=== PATIENT | male | born 1975 | race Two or more races ===

== ENCOUNTER 2023-01-29 17:34 | Emergency (ER) | payer MEDICAID ==
[~2023-01-29] VITALS: Ht 175.3 cm; Wt 82.8 kg
[2023-01-29 18:52] VITALS: BP 138/82
[2023-01-29] MEDS ORDERED: cefTRIAXone 1GM/50ML D5W 50 ML IV ONE (19:30)
[2023-01-29] MEDS ORDERED: SODIUM CHLORIDE 0.9% 1,000 ML IV ONE (19:30)
[2023-01-29] MEDS ORDERED: methylPREDNISolone SOD SUCC 125 MG/2 ML VL IV ONE (19:30)
[2023-01-29] MEDS ORDERED: AMOX-277 PO (21:08)
[2023-01-29] MEDS ORDERED: PRED20TA2 PO (21:08)
[2023-01-29] MEDS ORDERED: ACET-1158 PO (21:08)
== END 2023-01-29 21:14 | disposition home or self-care (01) ==
LOC: ER 17:34
DX: J06.9 Acute upper respiratory infection, unspecified (principal); Z20.822 Contact with and (suspected) exposure to COVID-19
CPT/HCPCS: 36415; 71045; 87426; 87804; 93005; 96361; 96365; 96375; 99284; J0696; J2930; J7030